=== PATIENT | male | born 1985 | race Caucasian/White ===

== ENCOUNTER 2021-03-08 00:19 | Emergency (ER) | payer OTHER ==
[~2021-03-08 00:19] MED LIST: IBUPROFEN600 MG PO; NORFLEX 100 MG100 MG PO; Voltaren Gel 1 % TOP; ZOFRAN4 MG PO
== END 2021-03-08 02:40 | disposition home or self-care (01) ==
LOC: ER1 00:19
DX: J06.9 Acute upper respiratory infection, unspecified (principal); Z20.822 Contact with and (suspected) exposure to COVID-19
CPT/HCPCS: 0240U; 99283; J1100